=== PATIENT | female | born 1990 | race Caucasian/White ===

== ENCOUNTER 2020-07-20 20:05 | Emergency (ER) | payer BC ==
[2020-07-20 22:20] VITALS: RESP 18
--- NOTE | 2020-07-20 22:21 | ED ---
Medical Decision Making - Medical Decision Making Medical screening exam: 29-year-old female with no CVA past medical history presents to the [facility] department for upper quadrant pain since 6 AM this morning. Patient states she has pain in her right lower quadrant. Patient has a history of abdominal surgery. Patient denies any nausea. She does feel constitutional symptoms. No diarrhea. She does have right lower quadrant abdominal tenderness in the right lower quadrant. She is urged by her significant other to come to the emergency department to be evaluated for acute appendicitis. Labs and CT ordered. Disposition Referrals: Gilmer Pereira MD [Primary Care Provider] - 1-2 days
[2020-07-20 22:59] LABS: Basophils # (A) 0.1 k/uL (0-0.2); Basophils % (A) 0 %; Eosinophils # (A) 0.3 k/uL (0-0.7); Eosinophils % (A) 2 %; HCT 41.4 % (34.0-46.0); HGB 14.2 gm/dL (11.4-16.0); Lymphocytes # (A) 3.5 k/uL (1.0-4.8); Lymphocytes % (A) 24 %; MCH 29.9 pg (25.0-35.0); MCHC 34.2 g/dL (31.0-37.0); MCV 87.3 fL (80.0-100.0); Mean Platelet Volume 7.1; Monocytes # (A) 0.9 k/uL (0-1.0); Monocytes % (A) 6 %; Neutrophils % (A) 67 %; Platelet Count 271 k/uL (150-450); RBC 4.74 m/uL (3.80-5.40); RDW 13.1 % (11.5-15.5); WBC 14.8 k/uL (3.8-10.6)
[2020-07-20 23:13] LABS: African American GFR (CKD) >90 (>60 ml/min/1.73 sqM); Anion Gap 10 mmol/L; Blood Urea Nitrogen 20 mg/dL (7-17); Calcium 9.6 mg/dL (8.4-10.2); Carbon Dioxide 26 mmol/L (22-30); Chloride 103 mmol/L (98-107); Glucose 93 mg/dL (74-99); Non-African American GFR(CKD) >90 (>60 ml/min/1.73 sqM); Potassium 4.2 mmol/L (3.5-5.1); Sodium 139 mmol/L (137-145)
--- NOTE | 2020-07-20 23:30 | CT ---
EXAMINATION TYPE: CT abdomen pelvis w con DATE OF EXAM: 07/20/2020 COMPARISON: None HISTORY: RLQ pain CT DLP: 2210.8 mGycm Automated exposure control for dose reduction was used. CONTRAST: Performed with IV Contrast, patient injected with 100 mL of Isovue 300. Images obtained from the diaphragm to the floor the pelvis with IV contrast. Lung bases are clear. There is no pleural effusion. Heart size is normal. There is no pericardial eff usion. Liver spleen stomach pancreas gallbladder appear normal. The bile ducts are not dilated. There is no adrenal mass. Kidneys show satisfactory contrast opacification. There is no hydronephrosi s. Ureters are not dilated. Delayed images show normal renal excretion. Appendix is posterior and farhad ears normal. There is no retroperitoneal adenopathy. Bladder distends smoothly. There is no inguinal hernia. There is no free fluid in the pelvis. Uterus is anteverted. There is no pelvic mass. Lumbar vertebra have normal spacing and alignment. Posterior elements are intact. There is no cookie yoanna fracture. The bony pelvis is intact. Hip joints are intact. There is 12 mm right inguinal lymph node. There is no mesenteric edema. There is no ascites or free air. There is no bowel obstruction. There i s no intestinal wall thickening. IMPRESSION: Normal CT scan abdomen and pelvis.
[2020-07-20] MEDS ORDERED: SODIUM CHLORIDE 0.9% 1,000 ML IV STA (23:32)
[2020-07-20] MEDS ORDERED: KETOROLAC 15 MG/ML 1 ML VIAL IVP STA (23:32)
[2020-07-20 23:36] LABS: Appearance,Urine Clear (Clear); Bilirubin,Urine Negative (Negative); Blood,Urine Negative (Negative); Color,Urine Light Yellow; Glucose,Urine (UA) Negative (Negative); Ketones,Urine Negative (Negative); Leukocyte Esterase,Urine Negative (Negative); Nitrite,Urine Negative (Negative); PH, Urine 6.5 (5.0-8.0); Protein,Urine Negative (Negative); Specific Gravity,Urine 1.024 (1.001-1.035); Urobilinogen,Urine <2.0 mg/dL (<2.0)
[2020-07-21 00:24] LABS: Albumin 4.4 g/dL (3.5-5.0); Total Protein 7.2 g/dL (6.3-8.2)
[2020-07-21 00:25] LABS: Bilirubin, Delta 0.1 mg/dL (0.0-0.2); Bilirubin,Unconjugated 0.2 mg/dL (0.0-1.1); Total Bilirubin 0.3 mg/dL (0.2-1.3)
--- NOTE | 2020-07-21 00:28 | US ---
EXAMINATION TYPE: US abdomen limited DATE OF EXAM: 07/21/2020 COMPARISON: CT CLINICAL HISTORY: ruq. RUQ pain x 6.5 hours. EXAM MEASUREMENTS: Liver Length: 18.2 cm Gallbladder Wall: 0.21 cm CBD: Limited visibility, measured at 0.54 cm Right Kidney: 12.4 x 5.6 x 4.9 cm Limited due to overlying gas and patient body habitus. Pancreas: Not well seen. Liver: Appears enlarged and to have an increased echogenicity. Increased attenuation. Gallbladder: Limited. Internal echoes seen versus artifact. Evidence for sonographic Auguste's sign: No CBD: Limited, portions seen appear wnl. Right Kidney: Measures upper limits of normal versus slightly enlarged. Renal pelvis appears slightl y dilated with anechoic appearance medially. IMPRESSION: No gallstones or dilated ducts. There is probably some fatty infiltration of the liver. Partly contra cted gallbladder.
--- NOTE | 2020-07-21 01:10 | ED ---
General Adult HPI - General Chief complaint: Abdominal Pain Stated complaint: ABD pain Source: patient, RN notes reviewed Mode of arrival: ambulatory Limitations: no limitations - History of Present Illness Initial comments: 29-year-old female with a past medical history of seizure disorder presents to the emergency room for chief complaint of abdominal pain. Patient states that this started around 6 AM. States it is mostly in the right upper quadrant. It does radiate to the right lower quadrant. Patient is concerned she could have appendicitis. Patient denies nausea or vomiting. Denies diarrhea. Denies fevers or chills.Patient has no other complaints at this time including shortness of breath, chest pain, nausea or vomiting, headache, or visual changes. - Related Data Home Medications Medication Instructions Recorded Confirmed ARIPiprazole [Abilify] 5 mg PO HS 07/20/20 07/20/20 Ibuprofen [Motrin] 800 mg PO TID PRN 07/20/20 07/20/20 Venlafaxine HCl ER [Effexor Xr] 150 mg PO HS 07/20/20 07/20/20 metFORMIN HCL [Glucophage] 500 mg PO BID 07/20/20 07/20/20 Previous Rx's Medication Instructions Recorded Famotidine [Pepcid] 20 mg PO BID #30 tablet 07/21/20 Allergies Allergy/AdvReac Type Severity Reaction Status Date / Time shellfish derived [Shellfish] AdvReac Diarrhea Verified 07/20/20 23:31 Review of Systems ROS Statement: Those systems with pertinent positive or pertinent negative responses have been documented in the HPI. ROS Other: All systems not noted in ROS Statement are negative. Past Medical History Past Medical History: Seizure Disorder History of Any Multi-Drug Resistant Organisms: None Reported Past Surgical History: Tonsillectomy Additional Past Surgical History / Comment(s): wisdom teeth Past Psychological History: Anxiety, Depression Smoking Status: Former smoker Past Alcohol Use History: Occasional Past Drug Use History: None Reported General Exam Limitations: no limitations General appearance: alert, in no apparent distress Head exam: Present: atraumatic, normocephalic, normal inspection Eye exam: Present: normal appearance, PERRL, EOMI. Absent: scleral icterus, conjunctival injection, periorbital swelling ENT exam: Present: normal exam, mucous membranes moist Neck exam: Present: normal inspection, full ROM. Absent: tenderness, meningismus, lymphadenopathy Respiratory exam: Present: normal lung sounds bilaterally. Absent: respiratory distress, wheezes, rales, rhonchi, stridor Cardiovascular Exam: Present: regular rate, normal rhythm, normal heart sounds. Absent: systolic murmur, diastolic murmur, rubs, gallop, clicks GI/Abdominal exam: Present: soft, tenderness (Minimal right upper quadrant tenderness, negative Auguste sign. No significant lower abdominal tenderness including right lower quadrant abdominal tenderness), normal bowel sounds. Absent: distended, guarding, rebound, rigid Course Vital Signs 07/20/20 07/21/20 22:15 00:30 Temperature 98.3 F 98.0 F Pulse Rate 101 H 92 Respiratory 18 18 Rate Blood Pressure 118/80 113/71 O2 Sat by Pulse 99 100 Oximetry Medical Decision Making - Medical Decision Making Vitals are stable. Patient is well-appearing. HPI and physical exam as documented. Shows mild cytosis, likely reactive. CMP is unremarkable. Urinalysis is negative. Advanced triage provider did order a CAT scan patient which showed no acute process. Abdominal ultrasound was also ordered by myself which showed no gallstones or dilated ducts. Patient refused pain medication stating her pain is almost gone, a 2 out of 10. At this time given pain is upper abdomen and everything that we have done here is negative, we will start patient on Pepcid as she could have gastritis. Recommend she follow up with primary care. She'll return here for any worsening symptoms. - Lab Data Result diagrams: 07/20/20 22:16 07/20/20 22:16 Lab Results 07/20/20 07/20/20 07/20/20 Range/Units 22:16 22:16 22:16 WBC 14.8 H (3.8-10.6) k/uL RBC 4.74 (3.80-5.40) m/uL Hgb 14.2 (11.4-16.0) gm/dL Hct 41.4 (34.0-46.0) % MCV 87.3 (80.0-100.0) fL MCH 29.9 (25.0-35.0) pg MCHC 34.2 (31.0-37.0) g/dL RDW 13.1 (11.5-15.5) % Plt Count 271 (150-450) k/uL MPV 7.1 Neutrophils % 67 % Lymphocytes % 24 % Monocytes % 6 % Eosinophils % 2 % Basophils % 0 % Neutrophils # 10.0 H (1.3-7.7) k/uL Lymphocytes # 3.5 (1.0-4.8) k/uL Monocytes # 0.9 (0-1.0) k/uL Eosinophils # 0.3 (0-0.7) k/uL Basophils # 0.1 (0-0.2) k/uL Sodium (137-145) mmol/L Potassium (3.5-5.1) mmol/L Chloride (98-107) mmol/L Carbon Dioxide (22-30) mmol/L Anion Gap mmol/L BUN (7-17) mg/dL Creatinine (0.52-1.04) mg/dL Est GFR (CKD-EPI)AfAm (>60 ml/min/1.73 sqM) Est GFR (CKD-EPI)NonAf (>60 ml/min/1.73 sqM) Glucose (74-99) mg/dL Calcium (8.4-10.2) mg/dL Total Bilirubin (0.2-1.3) mg/dL Conjugated Bilirubin (0.0-0.3) mg/dL Unconjugated Bilirubin (0.0-1.1) mg/dL Delta Bilirubin (0.0-0.2) mg/dL AST (14-36) U/L ALT (4-34) U/L Alkaline Phosphatase (38-126) U/L Total Protein (6.3-8.2) g/dL Albumin (3.5-5.0) g/dL Lipase (23-300) U/L Urine Color Light Yellow Urine Appearance Clear (Clear) Urine pH 6.5 (5.0-8.0) Ur Specific [place] 1.024 (1.001-1.035) Urine Protein Negative (Negative) Urine Glucose (UA) Negative (Negative) Urine Ketones Negative (Negative) Urine Blood Negative (Negative) Urine Nitrite Negative (Negative) Urine Bilirubin Negative (Negative) Urine Urobilinogen <2.0 (<2.0) mg/dL Ur Leukocyte Esterase Negative (Negative) Urine HCG, Qual Not Detected (Not Detectd) 07/20/20 07/20/20 Range/Units 22:16 22:16 WBC (3.8-10.6) k/uL RBC (3.80-5.40) m/uL Hgb (11.4-16.0) gm/dL Hct (34.0-46.0) % MCV (80.0-100.0) fL MCH (25.0-35.0) pg MCHC (31.0-37.0) g/dL RDW (11.5-15.5) % Plt Count (150-450) k/uL MPV Neutrophils % % Lymphocytes % % Monocytes % % Eosinophils % % Basophils % % Neutrophils # (1.3-7.7) k/uL Lymphocytes # (1.0-4.8) k/uL Monocytes # (0-1.0) k/uL Eosinophils # (0-0.7) k/uL Basophils # (0-0.2) k/uL Sodium 139 (137-145) mmol/L Potassium 4.2 (3.5-5.1) mmol/L Chloride 103 (98-107) mmol/L Carbon Dioxide 26 (22-30) mmol/L Anion Gap 10 mmol/L BUN 20 H (7-17) mg/dL Creatinine 0.59 (0.52-1.04) mg/dL Est GFR (CKD-EPI)AfAm >90 (>60 ml/min/1.73 sqM) Est GFR (CKD-EPI)NonAf >90 (>60 ml/min/1.73 sqM) Glucose 93 (74-99) mg/dL Calcium 9.6 (8.4-10.2) mg/dL Total Bilirubin 0.3 (0.2-1.3) mg/dL Conjugated Bilirubin 0.0 (0.0-0.3) mg/dL Unconjugated Bilirubin 0.2 (0.0-1.1) mg/dL Delta Bilirubin 0.1 (0.0-0.2) mg/dL AST 21 (14-36) U/L ALT 19 (4-34) U/L Alkaline Phosphatase 105 (38-126) U/L Total Protein 7.2 (6.3-8.2) g/dL Albumin 4.4 (3.5-5.0) g/dL Lipase 71 (23-300) U/L Urine Color Urine Appearance (Clear) Urine pH (5.0-8.0) Ur Specific [place] (1.001-1.035) Urine Protein (Negative) Urine Glucose (UA) (Negative) Urine Ketones (Negative) Urine Blood (Negative) Urine Nitrite (Negative) Urine Bilirubin (Negative) Urine Urobilinogen (<2.0) mg/dL Ur Leukocyte Esterase (Negative) Urine HCG, Qual (Not Detectd) Disposition Clinical Impression: Abdominal pain Disposition: HOME SELF-CARE Condition: Good Instructions (If sedation given, give patient instructions): Abdominal Pain (ED) Additional Instructions: Take Pepcid as directed. Please follow up with primary care in 1-2 days. Return to the emergency room for any worsening symptoms. Prescriptions: Famotidine [Pepcid] 20 mg PO BID #30 tablet Is patient prescribed a controlled substance at d/c from ED?: No Referrals: Gilmer Pereira MD [Primary Care Provider] - 1-2 days Time of Disposition: 01:09
[2020-07-21 01:28] VITALS: BP 124/82; PULSE 95; TEMP 98.2
== END 2020-07-21 01:28 | disposition home or self-care (01) ==
LOC: EC 20:05
DX: R10.11 Right upper quadrant pain (principal); G40.909 Epilepsy, unspecified, not intractable, without status epilepticus; F41.9 Anxiety disorder, unspecified; F32.9 Major depressive disorder, single episode, unspecified; Z79.84 Long term (current) use of oral hypoglycemic drugs; Z79.899 Other long term (current) drug therapy; Z91.013 Allergy to seafood; Z87.891 Personal history of nicotine dependence
CPT/HCPCS: 36415; 80048; 80076; 83690; 85025; 81003; 81025; 74177; 99284; Q9967; 76705

== ENCOUNTER → 2020-09-02 | Outpatient (CLI) | payer BC ==
--- NOTE | 2020-09-02 16:52 | P.HPBAR ---
Bariatric H&P - History & Physicial H&P Date: 09/02/20 History & Physicial: Visit/CC: Patient initial contact: Initial weight: Initial weight in pounds: Height: 5 ft 5 in Initial BMI: Last weight: Current weight: 131.542 kg Current weight in pounds: Current BMI: [place] body weight (based on NIH guidelines): Excess body weight loss: The patient is a 29 year-old F who presents for Bariatric Assessment. DATE OF SERVICE: 09/02/2020 REASON FOR CONSULTATION: Initial bariatric evaluation. HISTORY OF PRESENT ILLNESS: Marissa Ruiz is a 29-year-old female who comes with lifelong morbid obesity. She is looking into the sleeve gastrectomy. She has tried Keto diet for weight loss. She has lost 40 pounds from prior attempts and has weight regain. Her father has troubles with weight and morbid obesity. She has occasional gastroesophageal reflux disease. She does not takes Pepcid as needed. She denies prior EGD. She still has her gallbladder. She has right upper quadrant pain that is now improved. She denies prior abdominal surgeries. She had wisdom tooth extraction and tonsils removed. She denies stomach or esophageal cancer. She denies easy bruising or bleeding. She denies inflammatory bowel disease in herself or family. She denies past deep venous thromboses. She has shellfish allergy. She reports osteoarthritis of the knees. She denies hip pain. She has left ankle pain with osteoarthritis. She has snoring and sleep apnea. She denies reports of blood pressure. She is on anti-anxiety medications and antidepressants. She reports occasional smoking. She presents in consultation for management of morbid obesity. At height of 5 feet 5 inches, her ideal body weight is 149 pounds. She comes in 289 pounds. Her body mass index is 48.3. She is 140 pounds overweight. PAST MEDICAL HISTORY: 1. Morbid obesity due to excess calories 2. Body mass index of 48.3, initial 3. Seizure disorder 4. Generalized anxiety disorder 5. Depressive disorder 6. Gastroesophageal reflux disease 7. Obstructive sleep apnea 8. Osteoarthritis of the bilateral knees 9. Left ankle osteoarthritis PAST SURGICAL HISTORY: 1. Tonsillectomy 2. [place] tooth extraction HOME MEDICATIONS: Home Medications Medication Instructions Recorded Confirmed Ibuprofen [Motrin] 800 mg PO TID PRN 07/20/20 11/04/20 Venlafaxine HCl ER [Effexor XR] 150 mg PO HS 07/20/20 11/04/20 ALLERGIES: Allergies Allergy/AdvReac Type Severity Reaction Status Date / Time shellfish derived [Shellfish] AdvReac Diarrhea Verified 11/04/20 14:25 SOCIAL HISTORY: Tobacco use. FAMILY HISTORY: No family history of ulcerative colitis disease or Crohn's disease. Family history of morbid obesity. No lupus in the family. No reports of stomach or esophageal cancer. Her father has troubles with weight and morbid obesity. REVIEW OF ORGAN SYSTEMS: CONSTITUTIONAL: At height of 5 feet 5 inches, her ideal body weight is 149 pounds. She comes in 289 pounds. Her body mass index is 48.3. She is 140 pounds overweight. HEENT: Denies any active troubles with vision or hearing. ENDOCRINE: Denies diabetes. No hypothyroidism. CARDIOVASCULAR: Denies past reports of palpitations or heart attacks or chest pain. RESPIRATORY: Denies chronic obstructive pulmonary disease. GASTROINTESTINAL: Denies any bright red blood per rectum. No diarrhea. No constipation. Has gastroesophageal reflux disease. GENITOURINARY: Denies bladder urgency. No recent blood in urine MUSCULOSKELETAL: Has lower back pain and joint pain. Has osteoarthritis of the knees. NEURO: No headaches. No seizure disorders. PSYCH: Has depression. No suicidal ideation. RHEUMATOLOGIC: No lupus. No rheumatoid arthritis. HEMATOLOGIC: Denies any abnormal bleeding or bruising. SKIN: No rash. No skin cancer. PHYSICAL EXAM: VITAL SIGNS: Height 5 foot 5 inches, weight 289 pounds. BMI 48.3 Vital Signs Temp 98.2 F 09/02/20 16:40 Pulse 109 H 09/02/20 16:40 Resp 18 09/02/20 16:40 BP 121/76 09/02/20 16:40 Pulse Ox GENERAL: Well-developed in no acute distress. HEENT: No scleral icterus. Extraocular movements grossly intact. Hears conversational speech. No nasal drainage. NECK: Supple without lymphadenopathy. CHEST: Nonlabored respirations with equal bilateral excursions. CARDIOVASCULAR: Tachycardic. Distal 2+ pulses. ABDOMEN: Obese, soft, nontender, nondistended. MUSCULOSKELETAL: No clubbing, cyanosis. Gross strength within normal limits. NEURO: No focal or lateralizing signs. Cranial nerves 2 through 12 grossly within normal limits. PSYCH: Appropriate affect. Alert and oriented to person, place and time. SKIN: Good skin turgor. Well perfused. ASSESSMENT: 1. Morbid obesity due to excess calories 2. Body mass index of 48.3, initial 3. Seizure disorder 4. Generalized anxiety disorder 5. Depressive disorder 6. Gastroesophageal reflux disease 7. Obstructive sleep apnea 8. Osteoarthritis of the bilateral knees 9. Left ankle osteoarthritis 10. Dietary surveillance and counseling 11. Tobacco abuse disorder PLAN: 1. Surgical options including a band, gastric bypass, sleeve gastrectomy were described in detail. Alternatives such as gastric balloon including duodenal switch were described. She is looking into the sleeve gastrectomy. 2. The [place] bariatric surgical collaborative data and outcomes calculator were described with surgical options. 3. Recommend a bariatric metabolic panel to evaluate for micro- including macronutrient deficiencies. 4. For history of daytime somnolence, recommend evaluation and treatment for sleep apnea. 5. Dietary surveillance and counseling was reviewed. Increased protein intake over 65 grams daily advised. 6. Will need cardiac risk assessment. 7. Recommend medical risk assessment. 8. Psych assessment per insurance guidelines. 9. Recommend upper endoscopy. 10. Recommend 12-lead EKG. 11. Recommend urine nicotine testing for history of tobacco abuse disorder 12. Recommend urine drug screen 13. Tobacco cessation and counseling over 3 minutes reviewed. Thank you for this consultation. Past Medical History Past Medical History: Seizure Disorder History of Any Multi-Drug Resistant Organisms: None Reported Past Surgical History: Tonsillectomy Additional Past Surgical History / Comment(s): wisdom teeth Past Psychological History: Anxiety, Depression Smoking Status: Former smoker Past Alcohol Use History: Occasional Past Drug Use History: None Reported Bariatric Checklist Checklist: Plan: Checklist: EGD: 1. Hiatal hernia: 2. H. Pylori: HgbA1c: Vitamin D: Smoking: Primary care physician referral: Psychiatry clearance: Cardiology clearance: Sleep study: Diet journal: VTE risk score: VTE risk level: Rehab needs at discharge:
[2020-09-02 16:59] VITALS: BP 121/76; PULSE 109; RESP 18; TEMP 98.2; BMI 48.2
== END | disposition home or self-care (01) ==
LOC: BARWHC3 15:13
PROVIDERS: ATTEND Surgery Plastic and Reconstructive Surgery
DX: E66.01 Morbid (severe) obesity due to excess calories (principal); G40.909 Epilepsy, unspecified, not intractable, without status epilepticus; F41.1 Generalized anxiety disorder; F32.9 Major depressive disorder, single episode, unspecified; K21.9 Gastro-esophageal reflux disease without esophagitis; G47.33 Obstructive sleep apnea (adult) (pediatric); M17.0 Bilateral primary osteoarthritis of knee; M19.072 Primary osteoarthritis, left ankle and foot; Z71.3 Dietary counseling and surveillance; Z72.0 Tobacco use; Z68.42 Body mass index [BMI] 45.0-49.9, adult; Z91.013 Allergy to seafood; Z79.1 Long term (current) use of non-steroidal anti-inflammatories (NSAID)
CPT/HCPCS: 99203

== ENCOUNTER 2020-10-19 08:28 | Day surgery (SDC) | payer BC ==
[2020-10-14 14:00] VITALS: BMI 48.2
--- NOTE | 2020-10-19 07:43 | P.GSHP ---
History of Present Illness H&P Date: 10/19/20 CHIEF COMPLAINT: GERD HISTORY OF PRESENT ILLNESS: The patient is a 29-year-old female who presents reports gastroesophageal reflux disease. Upper endoscopy was offered for further evaluation and management. PAST MEDICAL HISTORY: Please see list. PAST SURGICAL HISTORY: Please see list. MEDICATIONS: Please see list. ALLERGIES: Please see list. SOCIAL HISTORY: No illicit drug use FAMILY HISTORY: No reports of Crohn disease or ulcerative colitis. REVIEW OF ORGAN SYSTEMS: CONSTITUTIONAL: No reports of fevers or chills. GI: Denies any blood in stools or constipation. PHYSICAL EXAM: VITAL SIGNS: Stable GENERAL: Well-developed and pleasant in no acute distress. HEENT: No scleral icterus. Extraocular movements grossly intact. Moist buccal mucosa. NECK: Supple without lymphadenopathy. CHEST: Unlabored respirations. Equal bilateral excursions. CARDIOVASCULAR: Regular rate and rhythm. Distal 2+ pulses. ABDOMEN: Soft, nondistended. MUSCULOSKELETAL: No clubbing, cyanosis, or edema. ASSESSMENT: 1. Gastroesophageal reflux disease PLAN: 1. Recommend proceeding with an upper endoscopy Past Medical History Past Medical History: Seizure Disorder Additional Past Medical History / Comment(s): petit mal seizures-last seizure approx age 11 or 12 History of Any Multi-Drug Resistant Organisms: None Reported Past Surgical History: Tonsillectomy Additional Past Surgical History / Comment(s): wisdom teeth Past Anesthesia/Blood Transfusion Reactions: No Reported Reaction Smoking Status: Former smoker - Past Family History Mother Family Medical History: Cancer Additional Family Medical History / Comment(s): bladder CA. maternal grandmother lung CA Medications and Allergies Home Medications Medication Instructions Recorded Confirmed Type Ibuprofen [Motrin] 800 mg PO TID PRN 07/20/20 10/14/20 History Venlafaxine HCl ER [Effexor Xr] 150 mg PO HS 07/20/20 10/14/20 History Allergies Allergy/AdvReac Type Severity Reaction Status Date / Time shellfish derived [Shellfish] AdvReac Diarrhea Verified 10/14/20 13:52
[~2020-10-19 08:28] MED LIST: LACTATED RINGERS 1,000 ML IV SCH
[2020-10-19 08:47] VITALS: TEMP 97.8
[2020-10-19] MEDS ORDERED: LIDOCAINE 1% (10MG/ML) FOR IV START INTRADERMA ONE (08:52)
[2020-10-19] MEDS ORDERED: KETAMINE 10 MG/ML 20 ML VIAL ONE (09:30)
[2020-10-19] MEDS ORDERED: LIDOCAINE 1% INJ 10MG/ML (20 ML MDV) ONE (09:30)
[2020-10-19] MEDS ORDERED: GLYCOPYRROLATE 0.2 MG/ML 2 ML VIAL ONE (09:30)
[2020-10-19] MEDS ORDERED: PROPOFOL 10 MG/ML 20 ML VIAL IV ONE (09:30)
--- NOTE | 2020-10-19 09:49 | P.PCN ---
Date of Procedure: 10/19/20 Description of Procedure: PREOPERATIVE DIAGNOSIS: Gastroesophageal reflux disease. Morbid obesity. POSTOPERATIVE DIAGNOSIS: Morbid obesity. Gastritis. Gastroesophageal reflux disease. OPERATION: Esophagogastroduodenoscopy with biopsies along antrum. SURGEON: Angelique Will MD ANESTHESIA: MAC. INDICATIONS: The patient is a 29-year-old female who presents with a history of reflux disease. Benefits and risks of the procedure were described. Informed consent was obtained. DESCRIPTION: The patient was brought into the endoscopy suite and laid in the left lateral decubitus position. An Olympus gastroscope was passed along the posterior oropharynx down to the distal esophagus where the squamocolumnar junction was encountered at 37 cm from the incisors. The stomach was entered and no bile reflux was found. Additional findings are listed below. Biopsies with cold forceps were obtained of the antrum. The first through third portion of the duodenum was examined and unremarkable. Retroflexion of the scope confirmed Hill grade 3 lower esophageal valve. The squamocolumnar junction demonstrated LA grade B erosive esophagitis. The stomach was desufflated. The patient tolerated the procedure well. FINDINGS: Squamocolumnar junction 37 cm from the incisors. Diaphragmatic hiatus at 37 cm. Hill grade 3 lower esophageal valve. LA grade B erosive esophagitis. No active duodenitis. Chronic gastritis RECOMMENDATIONS: Upper endoscopy as needed. Plan - Discharge Summary Discharge Rx Participant: No New Discharge Prescriptions: Continue Venlafaxine HCl ER [Effexor XR] 150 mg PO HS Ibuprofen [Motrin] 800 mg PO TID PRN PRN Reason: Pain Discharge Medication List Ibuprofen [Motrin] 800 mg PO TID PRN 07/20/20 [History] Venlafaxine HCl ER [Effexor XR] 150 mg PO HS 07/20/20 [History] Follow up Appointment(s)/Referral(s): Angelique Will MD [STAFF PHYSICIAN] - 11/04/20 Patient Instructions/Handouts: Gastritis (DC) Discharge Disposition: HOME SELF-CARE
[2020-10-19 10:23] VITALS: BP 121/81; PULSE 74; RESP 17
== END 2020-10-19 10:26 | disposition home or self-care (01) ==
LOC: ORWHC2ENDO 08:28
PROVIDERS: ATTEND Surgery Plastic and Reconstructive Surgery
DX: K21.9 Gastro-esophageal reflux disease without esophagitis (principal); K29.50 Unspecified chronic gastritis without bleeding; E66.01 Morbid (severe) obesity due to excess calories; G40.909 Epilepsy, unspecified, not intractable, without status epilepticus; Z79.899 Other long term (current) drug therapy; Z91.013 Allergy to seafood; F32.9 Major depressive disorder, single episode, unspecified
CPT/HCPCS: 81025; 88305; 43239; J2001; J2704

== ENCOUNTER → 2021-01-27 | Outpatient (CLI) | payer BC ==
[2021-01-27 16:34] LABS: Partial Thromboplastin Time 23.4 sec (22.0-30.0); Prothrombin Time 10.4 sec (9.0-12.0)
[2021-01-27 23:18] LABS: HGB 13.8 g/dL (12.0-15.0); MCH 29.1 pg (27.0-32.0); MCHC 32.9 g/dL (32.0-37.0); MCV 88.6 fL (80.0-97.0); Mean Platelet Volume 10.3 fL (9.5-12.2); Platelet Count 287 X 10*3/uL (140-440); RBC 4.74 X 10*6/uL (4.10-5.20); RDW 13.2 % (11.5-14.5); WBC 13.25 X 10*3/uL (4.50-10.00)
[2021-01-28 09:21] LABS: % Iron Saturation 18.82 (12.00-45.00); African American GFR (CKD) 138.6 (60.0-200.0); Albumin 4.8 g/dL (3.8-4.9); Albumin/Globulin Ratio 1.88 (1.60-3.17); Anion Gap 20.7 mmol/L (4.00-12.00); BUN/Creat Ratio 20.12 Ratio (12.00-20.00); Blood Urea Nitrogen 13.2 mg/dL (9.0-27.0); Calcium 9.4 mg/dL (8.7-10.3); Carbon Dioxide 16.1 mmol/L (21.6-31.8); Globulin 2.5 g/dL (1.6-3.3); Magnesium 2.1 mg/dL (1.5-2.4); Non-African American GFR(CKD) 119.6 (60.0-200.0); Phosphorus 4.2 mg/dL (2.4-5.1); Potassium 3.8 mmol/L (3.5-5.5); Prealbumin 22.6 mg/dL (18.0-42.0); Total Bilirubin 0.3 mg/dL (0.30-1.20); Total Protein 7.3 g/dL (6.2-8.2)
[2021-01-28 09:25] LABS: Folate, Serum 12.9 ng/mL (4.40-31.00)
[2021-01-28 13:53] LABS: Zinc, Serum 78 ug/dL (60-130)
[2021-01-29 06:10] LABS: Vitamin A 37 ug/dL (38-106)
[2021-01-29 06:33] LABS: Vit B1(Thiamine) 88 ug/L (38-122)
== END | disposition home or self-care (01) ==
LOC: LABWHC1 15:01
PROVIDERS: ATTEND Surgery Plastic and Reconstructive Surgery
DX: E66.01 Morbid (severe) obesity due to excess calories (principal); D50.8 Other iron deficiency anemias; K90.89 Other intestinal malabsorption; E89.1 Postprocedural hypoinsulinemia; E55.9 Vitamin D deficiency, unspecified; K74.1 Hepatic sclerosis; N19 Unspecified kidney failure; K50.90 Crohn's disease, unspecified, without complications
CPT/HCPCS: 84255; 84134; 84425; 80061; 80053; 82607; 82728; 82525; 82746; 83540; 83550; 83735; 84100; 84443; 84590; 84630; 85027; 85610; 85730; 82306; 80323; 83970; 83036; 80307; 93005; 36415; G0482

== ENCOUNTER → 2021-03-01 | Outpatient (CLI) | payer BC ==
[2021-03-01 13:01] VITALS: BMI 46.2
== END ==
LOC: BARWHC3 08:35
PROVIDERS: ATTEND Surgery Plastic and Reconstructive Surgery
DX: E66.01 Morbid (severe) obesity due to excess calories (principal); Z71.3 Dietary counseling and surveillance
CPT/HCPCS: 97804

== ENCOUNTER → 2021-03-03 | Outpatient (CLI) | payer BC | END | disposition home or self-care (01) | LOC: LABWHC1 11:09 | PROVIDERS: ATTEND Surgery Plastic and Reconstructive Surgery | DX: Z71.51 Drug abuse counseling and surveillance of drug abuser (principal) | CPT/HCPCS: 80323; 80307; G0482 ==

== ENCOUNTER → 2021-03-31 | Outpatient (CLI) | payer BC ==
[2021-04-01 00:01] LABS: Basophils # (A) 0.03 X 10*3/uL (0.00-0.10); Basophils % (A) 0.3 %; Eosinophils # (A) 0.13 X 10*3/uL (0.04-0.35); Eosinophils % (A) 1.2 %; HCT 41.6 % (37.2-46.3); HGB 13.4 g/dL (12.0-15.0); Lymphocytes # (A) 2.55 X 10*3/uL (0.90-5.00); MCH 28.1 pg (27.0-32.0); MCHC 32.2 g/dL (32.0-37.0); MCV 87.2 fL (80.0-97.0); Mean Platelet Volume 10.3 fL (9.5-12.2); Monocytes # (A) 0.72 X 10*3/uL (0.20-1.00); Monocytes % (A) 6.8 %; Neutrophils # (A) 7.17 X 10*3/uL (1.80-7.70); Neutrophils % (A) 67.3 %; Platelet Count 271 X 10*3/uL (140-440); RBC 4.77 X 10*6/uL (4.10-5.20); WBC 10.64 X 10*3/uL (4.50-10.00)
[2021-04-01 03:11] LABS: African American GFR (CKD) 142.8 (60.0-200.0); Albumin 4.4 g/dL (3.8-4.9); Anion Gap 14.6 mmol/L (10.00-18.00); Blood Urea Nitrogen 16.2 mg/dL (9.0-27.0); Calcium 9.2 mg/dL (8.7-10.3); Carbon Dioxide 21.4 mmol/L (20.0-27.5); Globulin 2.2 g/dL (1.6-3.3); Non-African American GFR(CKD) 123.2 (60.0-200.0); Potassium 3.7 mmol/L (3.5-5.5); Total Bilirubin 0.3 mg/dL (0.30-1.20); Total Protein 6.6 g/dL (6.2-8.2)
== END | disposition home or self-care (01) ==
LOC: EEVIPCON 16:03 → LABWHC1 16:03
PROVIDERS: ATTEND Surgery Plastic and Reconstructive Surgery
DX: Z01.812 Encounter for preprocedural laboratory examination (principal)
CPT/HCPCS: 36415; 80053; 85025

== ENCOUNTER → 2021-03-31 | Outpatient (CLI) | payer BC ==
[2021-03-31 15:34] VITALS: BP 154/51; PULSE 83; RESP 18; TEMP 98.7; BMI 45.9
--- NOTE | 2021-03-31 15:44 | P.BASOAP ---
Subjective Progress Note Date: 03/31/21 She has elevated WBC count. She is looking into sleeve. Need hematology direction for persistent leukocytosis. Consent reviewed. Objective - Vital Signs Vital signs: Vital Signs Temp 98.7 F 03/31/21 15:32 Pulse 83 03/31/21 15:32 Resp 18 03/31/21 15:32 BP 154/51 03/31/21 15:32 Pulse Ox Intake & Output 03/30/21 03/31/21 03/31/21 18:59 06:59 18:59 Weight 125.191 kg Assessment/Plan Plan: Date: 03/31/21 Initial Weight: 131.542 kg Initial BMI: 48.2 Current Weight: 125.191 kg Current BMI: 45.9 Type of Surgery: Total Volume in Band: Previous Volume: Volume Removed: Volume Added: Band Size:
== END | disposition home or self-care (01) ==
LOC: BARWHC3 15:06
PROVIDERS: ATTEND Surgery Plastic and Reconstructive Surgery
DX: E66.01 Morbid (severe) obesity due to excess calories (principal); Z68.42 Body mass index [BMI] 45.0-49.9, adult; Z71.3 Dietary counseling and surveillance
CPT/HCPCS: 99211

== ENCOUNTER 2021-04-05 11:56 | Inpatient (IN) | payer BC ==
--- NOTE | 2021-04-05 08:17 | P.GSHP ---
History of Present Illness H&P Date: 04/05/21 CHIEF COMPLAINT: Morbid obesity HISTORY OF PRESENT ILLNESS: Marissa Ruiz is a 30-year-old female who comes with lifelong morbid obesity. She is looking into the sleeve gastrectomy. As a result of her obesity, she had developed osteoarthritis of the knees, left ankle pain with osteoarthritis, and sleep apnea. She has completed upper endoscopy. No reports of abdominal pain. At height of 5 feet 5 inches, her ideal body weight is 149 pounds. She comes in 284 pounds from 289 pounds, 2 months ago. She has lost 5 pounds in 2 months. Her body mass index is 48.3, now 47.4. She is 135 pounds overweight. PAST MEDICAL HISTORY: 1. Morbid obesity due to excess calories 2. Body mass index of 48.3, initial 3. Seizure disorder 4. Generalized anxiety disorder 5. Depressive disorder 6. Gastroesophageal reflux disease 7. Obstructive sleep apnea 8. Osteoarthritis of the bilateral knees 9. Left ankle osteoarthritis PAST SURGICAL HISTORY: 1. Tonsillectomy 2. [place] tooth extraction HOME MEDICATIONS: Home Medications Medication Instructions Recorded Confirmed Ibuprofen [Motrin] 800 mg PO TID PRN 07/20/20 11/04/20 Venlafaxine HCl ER [Effexor XR] 150 mg PO HS 07/20/20 11/04/20 ALLERGIES: Allergies Allergy/AdvReac Type Severity Reaction Status Date / Time shellfish derived [Shellfish] AdvReac Diarrhea Verified 11/04/20 14:25 SOCIAL HISTORY: Tobacco use. FAMILY HISTORY: No family history of ulcerative colitis disease or Crohn's disease. Family history of morbid obesity. No lupus in the family. No reports of stomach or esophageal cancer. Her father has troubles with weight and morbid obesity. REVIEW OF ORGAN SYSTEMS: CONSTITUTIONAL: At height of 5 feet 5 inches, her ideal body weight is 149 pounds. Her body mass index is 48.3. She is 140 pounds overweight. HEENT: Denies any active troubles with vision or hearing. ENDOCRINE: Denies diabetes. No hypothyroidism. CARDIOVASCULAR: Denies past reports of palpitations or heart attacks or chest pain. RESPIRATORY: Denies chronic obstructive pulmonary disease. GASTROINTESTINAL: Denies any bright red blood per rectum. No diarrhea. No constipation. Has gastroesophageal reflux disease. GENITOURINARY: Denies bladder urgency. No recent blood in urine MUSCULOSKELETAL: Has lower back pain and joint pain. Has osteoarthritis of the knees. NEURO: No headaches. No seizure disorders. PSYCH: Has depression. No suicidal ideation. RHEUMATOLOGIC: No lupus. No rheumatoid arthritis. HEMATOLOGIC: Denies any abnormal bleeding or bruising. SKIN: No rash. No skin cancer. PHYSICAL EXAM: VITAL SIGNS: Height 5 foot 5 inches, weight 284 pounds. BMI 47.4 GENERAL: Well-developed in no acute distress. HEENT: No scleral icterus. Extraocular movements grossly intact. Hears conversational speech. No nasal drainage. NECK: Supple without lymphadenopathy. CHEST: Nonlabored respirations with equal bilateral excursions. CARDIOVASCULAR: Distal 2+ pulses. Regular rate and rhythm. ABDOMEN: Obese, soft, nontender, nondistended. MUSCULOSKELETAL: No clubbing, cyanosis. Gross strength within normal limits. NEURO: No focal or lateralizing signs. Cranial nerves 2 through 12 grossly within normal limits. PSYCH: Appropriate affect. Alert and oriented to person, place and time. SKIN: Good skin turgor. Well perfused. ASSESSMENT: 1. Morbid obesity due to excess calories 2. Body mass index of 48.3, initial 3. Seizure disorder 4. Generalized anxiety disorder 5. Depressive disorder 6. Gastroesophageal reflux disease 7. Obstructive sleep apnea 8. Osteoarthritis of the bilateral knees 9. Left ankle osteoarthritis 10. Dietary surveillance and counseling 11. Tobacco abuse disorder PLAN: 1. Bariatric options between a sleeve, band and a Kelly-en-Y gastric bypass were reviewed in detail. The patient elected for a sleeve gastrectomy. Robotic assisted approach described. 2. The [place] [facility] Data was also reviewed with benefits and risks as described. 3. An 8 page second-generation bariatric consent form was reviewed in detail including potential of bleeding, infection, leaks, adequate weight loss, nutritional deficiencies which the patient demonstrated understanding of the risks. 4. A 2 week high-protein low caloric 800 kcal diet described to address hepatomegaly. 5. Preoperative labs including complete metabolic panel and CBC with type and screen recommended. 6. DVT prophylaxis per [place] [facility]. 7. Antibiotic prophylaxis. 8. Inpatient hospitalization anticipated for more than 2 nights. 9. All questions and concerns were addressed with the patient. 10. She is at elevated risk with pre-existing history of tobacco abuse disorder 11. Overall, patient has expressed understanding of bariatric care including postoperative diet and commitment of lifestyle. Patient should benefit from surgical intervention for correction of her morbid obesity. Past Medical History Past Medical History: Seizure Disorder Additional Past Medical History / Comment(s): petit mal seizures-last seizure approx age 11 or 12 History of Any Multi-Drug Resistant Organisms: None Reported Past Surgical History: Tonsillectomy Additional Past Surgical History / Comment(s): wisdom teeth Past Anesthesia/Blood Transfusion Reactions: No Reported Reaction Smoking Status: Former smoker - Past Family History Mother Family Medical History: Cancer Additional Family Medical History / Comment(s): bladder CA. maternal grandmother lung CA Medications and Allergies Home Medications Medication Instructions Recorded Confirmed Type Ibuprofen [Motrin] 800 mg PO TID PRN 07/20/20 04/01/21 History FLUoxetine HCL [PROzac] 40 mg PO DAILY 03/08/21 04/01/21 History Allergies Allergy/AdvReac Type Severity Reaction Status Date / Time shellfish derived [Shellfish] AdvReac Diarrhea Verified 04/01/21 08:59
[~2021-04-05 11:56] MED LIST changes: +ACETAMINOPHEN TAB 500 MG TAB PO STA; +CHLORHEXIDINE GLUCONATE 15 ML CUP MUCOUS MEM PRN; +DEXAMETHASONE SOD PHOSPHATE 4 MG/ML 1 ML VIAL IV ONE; +ENOXAPARIN 40 MG/0.4 ML SYRINGE SQ PRN; +GABAPENTIN 300 MG CAP PO STA; +HYDROmorphone 0.5 MG/0.5 ML SYRINGE IVP PRN; -LACTATED RINGERS 1,000 ML IV SCH; +LIDOCAINE 1% (10MG/ML) FOR IV START INTRADERMA PRN; +MELOXICAM 7.5 MG TAB PO SCH; +MIDAZOLAM 2 MG/2 ML VIAL IV PRN; +ONDANSETRON 4 MG/2 ML VIAL IVP ONE; +PANTOPRAZOLE 40 MG/10 ML VIAL IVP PRN; +SCOPOLAMINE 1.5MG/72HR PATCH TRANSDERM STA; +ceFAZolin 3 GM in SODIUM CHLORIDE 0.9% 100 ML IVPB PRN
[2021-04-05 13:40] LABS: Basophils % (A) 0 %; Eosinophils # (A) 0.1 k/uL (0-0.7); Eosinophils % (A) 1 %; HCT 42.3 % (34.0-46.0); HGB 14.2 gm/dL (11.4-16.0); Lymphocytes % (A) 17 %; MCH 29.5 pg (25.0-35.0); MCHC 33.5 g/dL (31.0-37.0); MCV 88.3 fL (80.0-100.0); Mean Platelet Volume 7.8; Monocytes # (A) 0.5 k/uL (0-1.0); Monocytes % (A) 4 %; Neutrophils # (A) 8.7 k/uL (1.3-7.7); Neutrophils % (A) 76 %; Platelet Count 244 k/uL (150-450); RBC 4.79 m/uL (3.80-5.40); RDW 13.4 % (11.5-15.5); WBC 11.5 k/uL (3.8-10.6)
[2021-04-05] MEDS: LACTATED RINGERS 1,000 ML IV SCH (13:42)
[2021-04-05] MEDS ORDERED: NEOSTIGMINE 1 MG/ML 10 ML VIAL ONE (14:31)
[2021-04-05] MEDS ORDERED: SUGAMMADEX SODIUM 500 MG/5 ML SDV IV ONE (14:31)
[2021-04-05] MEDS ORDERED: MIDAZOLAM 2 MG/2 ML VIAL ONE (14:31)
[2021-04-05] MEDS ORDERED: SUCCINYLCHOLINE CHLORIDE VIAL 200 MG/10 ML VIAL IV ONE (14:31)
[2021-04-05] MEDS ORDERED: .fentaNYL (PF) 50 MCG/ML 2 ML AMP ONE (14:31)
[2021-04-05] MEDS ORDERED: GLYCOPYRROLATE 0.2 MG/ML 2 ML VIAL ONE (14:31)
[2021-04-05] MEDS ORDERED: PROPOFOL 10 MG/ML 20 ML VIAL IV ONE (14:31)
[2021-04-05] MEDS ORDERED: LIDOCAINE 1% INJ 10MG/ML (20 ML MDV) ONE (14:31)
[2021-04-05] MEDS ORDERED: ROCURONIUM 10 MG/ML (5 ML VIAL) IV ONE (14:31)
[2021-04-05] MEDS ORDERED: HYDROmorphone (PF) 1 MG/ML ONE (14:31)
[2021-04-05] MEDS ORDERED: BUPIVACAIN-EPI 0.25%-1:200,000 30 ML VIAL SQ ONE ×2 (14:54→15:01)
[2021-04-05] MEDS ORDERED: LACTATED RINGERS 1,000 ML IV ONE (16:18)
[2021-04-05] MEDS ORDERED: DEXAMETHASONE SOD PHOSPHATE 10 MG/ML 1 ML VIAL IVP PRN (16:26)
[2021-04-05] MEDS ORDERED: SODIUM CHLORIDE 0.9% 2,000 ML IV ONE (16:26)
[2021-04-05] MEDS ORDERED: HYDROmorphone 1 MG/ML 1 ML SYRINGE IVP PRN (16:27)
[2021-04-05] MEDS ORDERED: NALOXONE 0.4 MG/ML 1 ML VIAL IV PRN (16:27)
--- NOTE | 2021-04-05 16:33 | P.OP ---
Date of Procedure: 04/05/21 Description of Procedure: SURGEON: DANIELE GOODEN MD PREOPERATIVE DIAGNOSES: 1. Morbid obesity due to excess calories 2. Body mass index of 48.3, initial 3. Seizure disorder 4. Generalized anxiety disorder 5. Depressive disorder 6. Gastroesophageal reflux disease 7. Obstructive sleep apnea 8. Osteoarthritis of the bilateral knees 9. Left ankle osteoarthritis 10. Dietary surveillance and counseling 11. Tobacco abuse disorder POSTOPERATIVE DIAGNOSES: 1. Morbid obesity due to excess calories 2. Body mass index of 48.3, initial 3. Seizure disorder 4. Generalized anxiety disorder 5. Depressive disorder 6. Gastroesophageal reflux disease 7. Obstructive sleep apnea 8. Osteoarthritis of the bilateral knees 9. Left ankle osteoarthritis 10. Dietary surveillance and counseling 11. Tobacco abuse disorder OPERATION: 1. Robotic assisted daVinci Xi laparoscopic sleeve gastrectomy with 40-Saudi Arabian bougie, multiport. 2. Intraoperative esophagogastroduodenoscopy. ANESTHESIA: Gen. local anesthetic ESTIMATED BLOOD LOSS: 5 mL SPECIMENS REMOVED: Sleeve gastrectomy COMPLICATIONS: None. FINDINGS: 1. Negative intraoperative esophagogastrojejunoscopy leak test. 2. No large hiatus hernia. 3. Total of 6 staplers used including 3 - 60 mm green robot and 4 - 60 mm blue aisha used to create the gastric sleeve. 4. Sleeve gastrectomy 26 x 4.5 cm INDICATIONS: Marissa Ruiz is a 30-year-old female who comes with lifelong morbid obesity. She is looking into the sleeve gastrectomy. As a result of her obesity, she had developed osteoarthritis of the knees, left ankle pain with osteoarthritis, and sleep apnea. At height of 5 feet 5 inches, her ideal body weight is 149 pounds. She comes in 263 pounds. Her body mass index was 48.3. She is 135 pounds overweight. All surgical options for morbid obesity had been described using the [place] [facility]ariat[facility] collaborative comorbidity resolution including complication risk score. A second-generation bariatric consent form was described in detail including the possibility of protein malnutrition, leaks, gastric stricture, venous thrombosis, gastroesophageal reflux disease, need for further surgery for which he demonstrated understanding. Benefits and risks of the procedure were described at length. Informed consent was obtained. DESCRIPTION: The patient was brought into the operating room theater. Preoperatively he had received Lovenox subcutaneously for DVT prophylaxis. Additionally he had Peridex oral solution as an oral decontaminant. After general induction, the abdomen was prepped and draped in standard sterile fashion. An Ioban draping was placed along the abdomen. No harry catheter was placed. A robotic da Moises Xi system was prepped and primed. At 15 cm from the xiphoid, proposed port sites were marked with indelible marker along the anterior axillary line bilaterally, mid axillary line bilaterally with each ports were marked 10 to 15 cm from each other. The seed laboratory assistant port was marked along the left lateral abdominal wall. The robotic stapler port was marked for the right midclavicular line. A 5 mm 0 degrees laparoscopic trocar entry was performed along the left upper quadrant. The abdomen was insufflated to 15 mmHg pressure he tolerated well. Diagnostic laparoscopy demonstrated no injury to bowel, viscera, or mesentery. The liver surface was unremarkable for fatty liver disease. No injury had occurred to the small bowel or viscera. Along the hiatus no large hiatal hernia was found. A 8 mm port was placed along the right upper abdominal wall after exchanging the 5 mm port. A separate 8 mm port was placed along the left lateral abdominal wal l. Please note that the ports were placed at least 20 cm away from the target anatomy. Care was taken to check each robotic arms were safely away from collision with the bed or the patient. At the epigastrium, a medium sized Callie liver retractor was placed under direct visualization with the Iron Procurement Inspector placed under the right shoulder of the patient. Next, 12-mm robot stapler port was placed along the right upper quadrant. The camera 8-mm port was maintained along the epigastrium. The patient was repositioned in reverse Trendelenburg position at 21-degrees after lowering the bed. The robot was docked along the left side of the patient. Using a grasper for arm 4, a veseel sealer for arm 3, including grasper for arm 1, the robotic system was docked and primed as described. Instruments were interchanged by the seed laboratory assistant for stapler loads. The camera was placed at 30-degrees down. I had sat at the console. The pylorus was identified and 6 cm proximally along the greater curvature of the stomach, the short gastrics were mobilized upwards to the angle of His using a vessel sealer. Hemostasis was excellent during this portion of the procedure. Next, the upper pole of the stomach was adherent to the left shilpa, which was gently dissected free using atraumatic grasper. The nursing collar packer placed a 40-Saudi Arabian blunted tip bougie into the stomach. Robotic stapler green loads 60 mm x 3 and 60 mm x 4 blue loads were used to create the sleeve. Initial firing was across the antrum of the stomach towards the angle of His. The staple line was completely hemostatic and linear without corkscrewing. Hemostasis was excellent. The space from the angularis incisura of the sleeve was approximately 4 cm. I then went to the head of the bed to perform the intraoperative e sophagogastroduodenoscopy leak test. The upper pole of the stomach was bathed using normal saline solution. The scope was withdrawn with careful inspection along the staple line for which no leaks were found along the entire length. Additionally, the sleeve was completely hemostatic without any encroachment along the angularis incisura. Its topology was a soft "J". No stricture was encountered up on placement of the scope. The GI tract was desufflated. The patient tolerated this portion of the procedure well. The scope was completely withdrawn. The robot was undocked. I then rescrubbed into case, whereby the irrigation fluid was aspirated from the abdominal cavity. Tisseel fibrin sealant was placed along the staple length. Once dried the Callie liver retractor was removed. Attention was now brought to removal of the specimen. The distal end of the sleeve gastrectomy specimen was brought out through the 12 mm port at the left upper quadrant. The specimen was gently removed en total, corresponding to 26 cm x 4.5 cm sleeve gastrectomy specimen. No contamination had occurred during this process. All instruments and pneumoperitoneum including irrigation fluid was removed from the abdominal cavity. The 12 mm port site was irrigated with warm normal saline solution and diluted hydron peroxide. The 12-mm port site was reapproximated using 0 Vicryl and Marcelo-Ama of the left upper quadrant. The final incisions were closed using subcuticular interrupted suture of 4-0 Monocryl. Dermabond was applied to the skin once the skin had been cleansed. OptiFoam dressing was placed along the stomach extraction site. At the end of the procedure, needle, sponge, and instrument count was verified correct by the cardiovascular surgical tech. The patient was taken to the postanesthesia care unit in stable condition. He had tolerated the procedure well. Intraoperative films and findings were reviewed with the patient's family.
[2021-04-05] MEDS ORDERED: KETOROLAC 15 MG/ML 1 ML VIAL IVP ONE (16:50)
[2021-04-05] MEDS: DEXAMETHASONE SOD PHOSPHATE 4 MG/ML 1 ML VIAL IVP SCH (18:14)
[2021-04-05] MEDS: ONDANSETRON 4 MG/2 ML VIAL IVP SCH (18:14)
[2021-04-05] MEDS: KETOROLAC 30 MG/ML 1 ML VIAL IVP SCH (18:14)
[2021-04-05 18:16] VITALS: RESP 18
[2021-04-05] MEDS: ALBUTEROL NEBULIZED 2.5 MG/3 ML INHALATION SCH (19:15)
[2021-04-05] MEDS: 0.9% NACL WITH KCL 20 MEQ/L 1,000 ML IV SCH (20:00)
[2021-04-05] MEDS: ACETAMINOPHEN IV (For NPO) 1,000 MG in EMPTY BAG 1 BAG IVPB SCH (20:00)
[2021-04-06] MEDS: KETOROLAC 30 MG/ML 1 ML VIAL IVP SCH ×3 (00:14→13:50)
[2021-04-06] MEDS: ONDANSETRON 4 MG/2 ML VIAL IVP SCH ×3 (00:18→13:51)
[2021-04-06] MEDS: DEXAMETHASONE SOD PHOSPHATE 4 MG/ML 1 ML VIAL IVP SCH ×3 (00:21→13:50)
[2021-04-06] MEDS: ACETAMINOPHEN IV (For NPO) 1,000 MG in EMPTY BAG 1 BAG IVPB SCH ×3 (01:46→13:51)
[2021-04-06] MEDS: 0.9% NACL WITH KCL 20 MEQ/L 1,000 ML IV SCH ×2 (01:48→07:58)
[2021-04-06] MEDS: LACTATED RINGERS 1,000 ML IV SCH (08:00)
[2021-04-06] MEDS ORDERED: 0.9% NACL WITH KCL 20 MEQ/L 1,000 ML IV SCH (08:00)
[2021-04-06 08:29] VITALS: TEMP 98.4
[2021-04-06] MEDS ORDERED: FLUoxetine HCL 20 MG CAP PO SCH (09:00)
[2021-04-06] MEDS ORDERED: PANTOPRAZOLE 40 MG/10 ML VIAL IV SCH (09:00)
[2021-04-06] MEDS ORDERED: ENOXAPARIN 40 MG/0.4 ML SYRINGE SQ SCH (09:00)
[2021-04-06] MEDS: ALBUTEROL NEBULIZED 2.5 MG/3 ML INHALATION SCH ×2 (09:29→11:56)
[2021-04-06 09:37] LABS: Basophils # (A) 0 X 10*3/uL (0.00-0.10); Basophils % (A) 0 %; Eosinophils # (A) 0 X 10*3/uL (0.04-0.35); Eosinophils % (A) 0 %; HCT 39.9 % (37.2-46.3); HGB 12.3 g/dL (12.0-15.0); Lymphocytes # (A) 0.76 X 10*3/uL (0.90-5.00); Lymphocytes % (A) 8.2 %; MCH 28.1 pg (27.0-32.0); MCHC 30.8 g/dL (32.0-37.0); MCV 91.1 fL (80.0-97.0); Mean Platelet Volume 10.8 fL (9.5-12.2); Monocytes # (A) 0.17 X 10*3/uL (0.20-1.00); Monocytes % (A) 1.8 %; Neutrophils # (A) 8.31 X 10*3/uL (1.80-7.70); Neutrophils % (A) 89.6 %; Platelet Count 230 X 10*3/uL (140-440); RBC 4.38 X 10*6/uL (4.10-5.20); RDW 13.2 % (11.5-14.5); WBC 9.28 X 10*3/uL (4.50-10.00)
[2021-04-06 11:27] LABS: African American GFR (CKD) 146.2 (60.0-200.0); Anion Gap 15.2 mmol/L (10.00-18.00); Blood Urea Nitrogen 9.8 mg/dL (9.0-27.0); Calcium 8.8 mg/dL (8.7-10.3); Carbon Dioxide 15.9 mmol/L (20.0-27.5); Magnesium 2.1 mg/dL (1.5-2.4); Non-African American GFR(CKD) 126.2 (60.0-200.0); Phosphorus 3.4 mg/dL (2.4-5.1); Potassium 5.1 mmol/L (3.5-5.5)
[2021-04-06 11:59] VITALS: BMI 42.5
--- NOTE | 2021-04-06 14:01 | FL ---
SINGLE CONTRAST UPPER GI EXAMINATION: CLINICAL HISTORY: 30-year-old female postop bariatric surgery. TECHNIQUE: Single contrast exam performed with 50 ml Isovue-370 contrast. Total fluoroscopy time: 1 minute 8 seconds. Total images: 24. FINDINGS: The patient swallowed oral contrast without difficulty or delay. Esophageal peristalsis and motility are within normal limits. There is prompt passage of contrast from the esophagus into the stomach. There is postsurgical change of sleeve gastrectomy demonstrated. Satisfactory passage across the slee ve and into the duodenum. There is no evidence of contrast extravasation to suggest leak. No postsurg ical free air identified in the abdomen. IMPRESSION: No evidence for leak or obstruction status post sleeve gastrectomy.
--- NOTE | 2021-04-06 14:45 | P.DS ---
Providers Date of admission: 04/05/21 11:56 Expected date of discharge: 04/06/21 Attending physician: Angelique Will Primary care physician: Gilmer Pereira MD Hospital Course: Discharge diagnosis 1. Morbid obesity due to excess calories 2. Body mass index of 48.3, initial 3. Seizure disorder 4. Generalized anxiety disorder 5. Depressive disorder 6. Gastroesophageal reflux disease 7. Obstructive sleep apnea 8. Osteoarthritis of the bilateral knees 9. Left ankle osteoarthritis 10. Dietary surveillance and counseling 11. Tobacco abuse disorder Hospital course Marissa Ruiz is a 30-year-old female who comes with lifelong morbid obesity. As a result of her obesity, she had developed osteoarthritis of the knees, left ankle pain with osteoarthritis, and sleep apnea. Patient is status post Robotic assisted daVinci Xi laparoscopic sleeve gastrectomy. Patient tolerated surgery well. Upper GI completed showing no evidence of leak or obstruction. Patient is tolerating her bariatric clear liquid diet. She is having flatus. She has been up and ambulating. Her pain is controlled. She is afebrile. She is urinating without difficulty. Patient is still for discharge. Physician Cork Wirer note has been reviewed by physician. Signing provider agrees with the documented findings, assessment, and plan of care. Patient Condition at Discharge: Stable Plan - Discharge Summary Discharge Rx Participant: No New Discharge Prescriptions: New bisacodyL [Dulcolax] 5 mg PO DAILY PRN #10 tab PRN Reason: Constipation Simethicone 40 mg/0.6 ml Drops [Mylicon Drops] 40 mg PO PCHS PRN #30 ml PRN Reason: Gas Omeprazole [PriLOSEC] 40 mg PO DAILY #30 cap Acetaminophen Tab [Tylenol Tab] 1,000 mg PO Q6HR PRN #30 tablet PRN Reason: Pain Ondansetron Odt [Zofran Odt] 4 mg PO Q8HR PRN #9 tab PRN Reason: Nausea Continue FLUoxetine HCL [PROzac] 40 mg PO DAILY Discontinued Ibuprofen [Motrin] 800 mg PO TID PRN PRN Reason: Pain Discharge Medication List FLUoxetine HCL [PROzac] 40 mg PO DAILY 03/08/21 [History] Acetaminophen Tab [Tylenol Tab] 1,000 mg PO Q6HR PRN #30 tablet 04/05/21 [Rx] Omeprazole [PriLOSEC] 40 mg PO DAILY #30 cap 04/05/21 [Rx] Ondansetron Odt [Zofran Odt] 4 mg PO Q8HR PRN #9 tab 04/05/21 [Rx] Simethicone 40 mg/0.6 ml Drops [Mylicon Drops] 40 mg PO PCHS PRN #30 ml 04/05/21 [Rx] bisacodyL [Dulcolax] 5 mg PO DAILY PRN #10 tab 04/05/21 [Rx] [facility] up [facility]ment[facility] [facility] [place] [place] [facility] [place] 04/09/21 9:00 am Patient Instructions/Handouts: *[facility] - Managing Your Pain After Surgery Without Opioids, *[facility] - Scopalamine Patch Instructions, Nutrition after Bariatric Surgery (GEN), Laparoscopic Sleeve Gastrectomy (DC) Activity/Diet/Wound Care/Special Instructions: Liquid diet only for 2 weeks until April 19 May Shower. No soaking in bath tubs 2 weeks until April 19 Continue to use incentive spirometry to prevent pneumonias. Please continue to ambulate at home to prevent blood clots in legs. Please notify your surgeon if you develop nausea and vomiting including new onset of abdominal pain. No lifting over 4 pounds in 4 weeks, May 06 Drink 64 oz of fluid daily. Start protein shakes on . Notify bariatric center for temp over 101.0, increased pain, drainage from incisions. No straws or carbonated beverages. Liquid diet only. Sugar content should be less than 6 g to avoid dumping syndrome. Take MOM for constipation. CRUSH, OPEN, OR CUT TABLETS LARGER THAN A SIZE OF A TIC TAC Discharge Disposition: HOME SELF-CARE
[2021-04-06 14:55] VITALS: BP 102/67; PULSE 62
== END 2021-04-06 16:53 | disposition home or self-care (01) | DRG 621 ==
LOC: 2ORMAIN 11:56 → 4SSUR 17:05
PROVIDERS: ADMIT Surgery Plastic and Reconstructive Surgery; ATTEND Surgery Plastic and Reconstructive Surgery
PROC: 0DJ08ZZ Inspection of Upper Intestinal Tract, Via Natural or Artificial Opening Endoscopic (ICD-10-PCS; 2021-04-05)
PROC: 8E0W4CZ Robotic Assisted Procedure of Trunk Region, Percutaneous Endoscopic Approach (ICD-10-PCS; 2021-04-05)
PROC: 0DB64Z3 Excision of Stomach, Percutaneous Endoscopic Approach, Vertical (ICD-10-PCS; principal; 2021-04-05 13:25)
DX: E66.01 Morbid (severe) obesity due to excess calories (principal); F32.A Depression, unspecified; Z68.42 Body mass index [BMI] 45.0-49.9, adult; Z20.822 Contact with and (suspected) exposure to COVID-19; F41.1 Generalized anxiety disorder; G40.909 Epilepsy, unspecified, not intractable, without status epilepticus; G47.33 Obstructive sleep apnea (adult) (pediatric); K21.9 Gastro-esophageal reflux disease without esophagitis; M17.0 Bilateral primary osteoarthritis of knee; M19.072 Primary osteoarthritis, left ankle and foot; Z79.899 Other long term (current) drug therapy; Z71.3 Dietary counseling and surveillance; Z87.891 Personal history of nicotine dependence
CPT/HCPCS: 74240; 80051; 81025; 82310; 82565; 83735; 84100; 84520; 85025; 86850; 86900; 86901; 87635; 88307; 94640

== ENCOUNTER → 2021-04-09 | Outpatient (CLI) | payer BC ==
[2021-04-09 09:20] VITALS: BP 112/78; PULSE 76; TEMP 98.1; BMI 44.1
--- NOTE | 2021-04-09 10:02 | P.BASOAP ---
Subjective Progress Note Date: 04/09/21 Patient is doing extremely well. Urinating well. Tolerating fluids. White cell count normal for the first time. Follow-up in one week. Objective - Vital Signs Vital signs: Vital Signs Temp 98.1 F 04/09/21 09:18 Pulse 76 04/09/21 09:18 Resp BP 112/78 04/09/21 09:18 Pulse Ox Intake & Output 04/08/21 04/09/21 04/09/21 18:59 06:59 18:59 Weight 120.202 kg Assessment/Plan Plan: Date: 04/09/21 Initial Weight: 131.542 kg Initial BMI: 48.2 Current Weight: 120.202 kg Current BMI: 44.1 Type of Surgery: Total Volume in Band: Previous Volume: Volume Removed: Volume Added: Band Size:
== END | disposition home or self-care (01) ==
LOC: BARWHC3 08:47
PROVIDERS: ATTEND Surgery Plastic and Reconstructive Surgery
DX: E66.01 Morbid (severe) obesity due to excess calories (principal); Z68.41 Body mass index [BMI] 40.0-44.9, adult
CPT/HCPCS: 99211

== ENCOUNTER → 2021-04-14 | Outpatient (CLI) | payer BC ==
--- NOTE | 2021-04-14 15:59 | P.BASOAP ---
Subjective Progress Note Date: 04/14/21 [place] child. Doing awesome! She has lost 20 pounds in 2 weeks. Assessment/Plan Plan: Date: Initial Weight: 131.542 kg Initial BMI: Current Weight: Current BMI: Type of Surgery: Total Volume in Band: Previous Volume: Volume Removed: Volume Added: Band Size:
[2021-04-14 16:10] VITALS: BMI 41.4
[2021-04-14 17:03] VITALS: BP 122/77; PULSE 92; RESP 16; TEMP 98.6
== END ==
LOC: BARWHC3 14:25
PROVIDERS: ATTEND Surgery Plastic and Reconstructive Surgery
DX: E66.01 Morbid (severe) obesity due to excess calories (principal); Z71.3 Dietary counseling and surveillance; Z68.41 Body mass index [BMI] 40.0-44.9, adult
CPT/HCPCS: 97803; 99211

== ENCOUNTER → 2021-05-06 | Outpatient (CLI) | payer BC ==
[2021-05-06 15:58] LABS: Partial Thromboplastin Time 23.5 sec (22.0-30.0); Prothrombin Time 10.9 sec (9.0-12.0)
[2021-05-06 23:20] LABS: HCT 40.2 % (37.2-46.3); HGB 12.9 g/dL (12.0-15.0); MCH 28.4 pg (27.0-32.0); MCHC 32.1 g/dL (32.0-37.0); MCV 88.4 fL (80.0-97.0); Mean Platelet Volume 11.9 fL (9.5-12.2); Platelet Count 228 X 10*3/uL (140-440); RBC 4.55 X 10*6/uL (4.10-5.20); RDW 14.1 % (11.5-14.5); WBC 11.64 X 10*3/uL (4.50-10.00)
[2021-05-07 01:01] LABS: % Iron Saturation 11.88 (12.00-45.00); ALT 28 U/L (8-44); AST 19 U/L (13-35); African American GFR (CKD) 147.2 (60.0-200.0); Albumin 4.4 g/dL (3.8-4.9); Albumin/Globulin Ratio 2.22 (1.60-3.17); Alkaline Phosphatase 102 U/L (41-126); BUN/Creat Ratio 39.85 Ratio (12.00-20.00); Blood Urea Nitrogen 21.8 mg/dL (9.0-27.0); Calcium 9.7 mg/dL (8.7-10.3); Carbon Dioxide 22.3 mmol/L (20.0-27.5); Chloride 101 mmol/L (96-109); Glucose 87 mg/dL (70-110); Iron 33 ug/dL (50-170); LDL Cholesterol,Calculated 72.7 mg/dL (0.0-131.0); Potassium 3.6 mmol/L (3.5-5.5); Prealbumin 14.8 mg/dL (18.0-42.0); Sodium 140 mmol/L (135-145); Total Iron Binding Capacity 279 ug/dL (228-460); Total Protein 6.4 g/dL (6.2-8.2); VLDL Calculation 16.94 mg/dL (5.00-40.00)
[2021-05-07 02:11] LABS: Phosphorus 4.3 mg/dL (2.4-5.1)
[2021-05-07 14:55] LABS: Zinc, Serum 75 ug/dL (60-130)
== END | disposition home or self-care (01) ==
LOC: LABWHC1 14:59
PROVIDERS: ATTEND Surgery Plastic and Reconstructive Surgery
DX: E66.01 Morbid (severe) obesity due to excess calories (principal); E89.1 Postprocedural hypoinsulinemia; D50.8 Other iron deficiency anemias; E44.0 Moderate protein-calorie malnutrition; E55.9 Vitamin D deficiency, unspecified; K74.1 Hepatic sclerosis; N19 Unspecified kidney failure; K50.90 Crohn's disease, unspecified, without complications
CPT/HCPCS: 36415; 80053; 80061; 82306; 82525; 82607; 82728; 82746; 83036; 83540; 83550; 83735; 83970; 84100; 84134; 84255; 84425; 84443; 84590; 84630; 85027; 85610; 85730

== ENCOUNTER → 2021-07-07 | Outpatient (CLI) | payer BC ==
--- NOTE | 2021-07-07 15:11 | P.BASOAP ---
Subjective Progress Note Date: 07/07/21 Lost 50 pounds. She is doing well. No GERD. She is not keeping a sample. Bloodwork check. Recheck vitamin Food diary 3 month. Assessment/Plan Plan: Date: Initial Weight: 131.542 kg Initial BMI: Current Weight: Current BMI: Type of Surgery: Total Volume in Band: Previous Volume: Volume Removed: Volume Added: Band Size:
[2021-07-07 15:41] VITALS: BP 110/78; PULSE 76; TEMP 98; BMI 36.8
[2021-07-07 17:21] LABS: INR 0.9 (<1.2); Partial Thromboplastin Time 23.8 sec (22.0-30.0); Prothrombin Time 10.2 sec (9.0-12.0)
[2021-07-08 00:17] LABS: % Iron Saturation 10.66 (12.00-45.00); ALT 11 U/L (8-44); AST 15 U/L (13-35); Albumin 4.4 g/dL (3.8-4.9); Albumin/Globulin Ratio 2.31 (1.60-3.17); Alkaline Phosphatase 98 U/L (41-126); Blood Urea Nitrogen 13.9 mg/dL (9.0-27.0); Calcium 9.4 mg/dL (8.7-10.3); Carbon Dioxide 21.8 mmol/L (20.0-27.5); Chloride 101 mmol/L (96-109); Globulin 1.9 g/dL (1.6-3.3); Glucose 85 mg/dL (70-110); Iron 30 ug/dL (50-170); Non-African American GFR(CKD) 124.3 (60.0-200.0); Phosphorus 4.4 mg/dL (2.4-5.1); Potassium 3.9 mmol/L (3.5-5.5); Sodium 139 mmol/L (135-145); Total Iron Binding Capacity 281 ug/dL (228-460); Total Protein 6.3 g/dL (6.2-8.2)
[2021-07-08 00:56] LABS: HCT 41.6 % (37.2-46.3); HGB 13.2 g/dL (12.0-15.0); MCH 28.9 pg (27.0-32.0); MCHC 31.7 g/dL (32.0-37.0); Mean Platelet Volume 10.9 fL (9.5-12.2); NRBC Per 100 WBC 0 /100 WBCS (0.0-0.0); Platelet Count 205 X 10*3/uL (140-440); RBC 4.57 X 10*6/uL (4.10-5.20); RDW 14.1 % (11.5-14.5); WBC 6.76 X 10*3/uL (4.50-10.00)
[2021-07-08 04:43] LABS: Chol/HDL Ratio 3.48 Ratio; LDL Cholesterol,Calculated 74.4 mg/dL (0.0-131.0); Prealbumin 18.3 mg/dL (18.0-42.0)
[2021-07-08 12:58] LABS: Zinc, Serum 62 ug/dL (60-130)
[2021-07-09 08:32] LABS: Vitamin A 41 ug/dL (38-106)
== END | disposition home or self-care (01) ==
LOC: BARWHC3 14:55
PROVIDERS: ATTEND Surgery Plastic and Reconstructive Surgery
DX: E66.01 Morbid (severe) obesity due to excess calories (principal); D50.8 Other iron deficiency anemias; D50.9 Iron deficiency anemia, unspecified; K90.89 Other intestinal malabsorption; K90.9 Intestinal malabsorption, unspecified; E55.9 Vitamin D deficiency, unspecified; K74.1 Hepatic sclerosis; N19 Unspecified kidney failure; T56.894A Toxic effect of other metals, undetermined, initial encounter; K50.90 Crohn's disease, unspecified, without complications
CPT/HCPCS: 80053; 80061; 82306; 82525; 82607; 82728; 82746; 83036; 83540; 83550; 83735; 83970; 84100; 84134; 84255; 84425; 84443; 84590; 84630; 85027; 85610; 85730; 97803; 99211

== ENCOUNTER → 2021-10-06 | Outpatient (CLI) | payer BC ==
[2021-10-06 14:38] VITALS: BP 120/76; PULSE 79; TEMP 98.6; BMI 33.3
--- NOTE | 2021-10-06 14:49 | P.BASOAP ---
Subjective Progress Note Date: 10/06/21 Reviewed journal. Fluids adequate. Has weight loss. 6 months labs. Objective - Vital Signs Vital signs: Vital Signs Temp 98.6 F 10/06/21 14:34 Pulse 79 10/06/21 14:34 Resp BP 120/76 10/06/21 14:34 Pulse Ox FiO2 Intake & Output 10/05/21 10/06/21 10/06/21 18:59 06:59 18:59 Weight 90.718 kg Assessment/Plan Plan: Date: 10/06/21 Initial Weight: 131.542 kg Initial BMI: 48.2 Current Weight: 90.718 kg Current BMI: 33.3 Type of Surgery: Total Volume in Band: Previous Volume: Volume Removed: Volume Added: Band Size:
[2021-10-06 16:08] LABS: INR 0.9 (<1.2); Partial Thromboplastin Time 24.4 sec (22.0-30.0); Prothrombin Time 10.3 sec (9.0-12.0)
[2021-10-06 23:14] LABS: Chol/HDL Ratio 3.24 Ratio; LDL Cholesterol,Calculated 90.9 mg/dL (0.0-131.0); Prealbumin 17.6 mg/dL (18.0-42.0)
[2021-10-06 23:15] LABS: HGB 12.6 g/dL (12.0-15.0); MCH 28.8 pg (27.0-32.0); MCHC 31.5 g/dL (32.0-37.0); MCV 91.5 fL (80.0-97.0); Mean Platelet Volume 10.8 fL (9.5-12.2); NRBC Per 100 WBC 0 /100 WBCS (0.0-0.0); Platelet Count 236 X 10*3/uL (140-440); RBC 4.37 X 10*6/uL (4.10-5.20); RDW 13.2 % (11.5-14.5)
[2021-10-06 23:55] LABS: ALT 13 U/L (8-44); AST 15 U/L (13-35); African American GFR (CKD) 144.5 (60.0-200.0); Albumin 4.3 g/dL (3.8-4.9); Albumin/Globulin Ratio 2.21 (1.60-3.17); Alkaline Phosphatase 90 U/L (41-126); BUN/Creat Ratio 28.37 Ratio (12.00-20.00); Blood Urea Nitrogen 16.4 mg/dL (9.0-27.0); Calcium 9.3 mg/dL (8.7-10.3); Carbon Dioxide 24.8 mmol/L (20.0-27.5); Chloride 103 mmol/L (96-109); Glucose 93 mg/dL (70-110); Non-African American GFR(CKD) 124.7 (60.0-200.0); Sodium 140 mmol/L (135-145); Total Protein 6.3 g/dL (6.2-8.2)
[2021-10-06 23:56] LABS: % Iron Saturation 9.24 (12.00-45.00); Ferritin 69.5 ng/mL (10.0-291.0); Iron 28 ug/dL (50-170); Magnesium 2.2 mg/dL (1.5-2.4); Phosphorus 4.6 mg/dL (2.4-5.1); Total Iron Binding Capacity 305 ug/dL (228-460)
[2021-10-07 13:27] LABS: Zinc, Serum 56 ug/dL (60-130)
== END | disposition home or self-care (01) ==
LOC: BARWHC3 14:27
PROVIDERS: ATTEND Surgery Plastic and Reconstructive Surgery
DX: E66.01 Morbid (severe) obesity due to excess calories (principal); D50.8 Other iron deficiency anemias; D50.9 Iron deficiency anemia, unspecified; K91.2 Postsurgical malabsorption, not elsewhere classified; E44.0 Moderate protein-calorie malnutrition; E44.1 Mild protein-calorie malnutrition; E45 Retarded development following protein-calorie malnutrition; K74.1 Hepatic sclerosis; E55.9 Vitamin D deficiency, unspecified; N19 Unspecified kidney failure; T56.894A Toxic effect of other metals, undetermined, initial encounter; K50.90 Crohn's disease, unspecified, without complications
CPT/HCPCS: 80053; 80061; 82306; 82525; 82607; 82728; 82746; 83036; 83540; 83550; 83735; 83970; 84100; 84134; 84255; 84425; 84443; 84590; 84630; 85027; 85610; 85730; 97803; 99211

== ENCOUNTER → 2022-07-18 | Outpatient (CLI) | payer BC | END | disposition home or self-care (01) | LOC: LABWHC1 14:29 | PROVIDERS: ATTEND Physician Assistant | DX: L40.0 Psoriasis vulgaris (principal); Z79.899 Other long term (current) drug therapy | CPT/HCPCS: 36415; 86480 ==

== ENCOUNTER → 2022-11-07 | Outpatient (CLI) | payer BC ==
--- NOTE | 2022-11-07 14:30 | CA ---
Transthoracic Echo Report Name: Marissa Ruiz Age: 31 Gender: F : 1990 Exam Date: 11/07/2022 12:44 Exam Location: [place] Echo Ht (in): 66 Wt (lb): 210 Ordering Physician: Bentley Meneses DO Attending/Referring Phys: Structural Steel Equipment Erector Anisha Lisa [facility] Procedure CPT: Indications: R01.1 Murmur Cardiac Hx: Technical Quality: Fair Contrast 1: Total Dose (mL): Contrast 2: Total Dose (mL): MEASUREMENTS (Male / Female) Normal Values 2D ECHO LV Diastolic Diameter PLAX 4.8 cm 4.2 - 5.9 / 3.9 - 5.3 cm LV Systolic Diameter PLAX 3.3 cm IVS Diastolic Thickness 0.9 cm 0.6 - 1.0 / 0.6 - 0.9 cm LVPW Diastolic Thickness 0.8 cm 0.6 - 1.0 / 0.6 - 0.9 cm LV Relative Wall Thickness 0.3 LVOT Diameter 2.1 cm Ascending Aorta Diameter 2.6 cm M-MODE Aortic Root Diameter MM 2.7 cm LA Systolic Diameter MM 3.5 cm LA Ao Ratio MM 1.3 AV Cusp Separation MM 2.1 cm DOPPLER AV Peak Velocity 135.7 cm/s AV Peak Gradient 7.4 mmHg AV Mean Velocity 94.4 cm/s AV Mean Gradient 3.9 mmHg AV Velocity Time Integral 30.4 cm LVOT Peak Velocity 105.7 cm/s LVOT Peak Gradient 4.5 mmHg LVOT Velocity Time Integral 22.9 cm LVOT Stroke Volume 80.8 cm??? LVOT Stroke Volume Index 39.6 ml/m??? LVOT Cardiac Index 2528.0 cm???/min???m??? AV Area Cont Eq vti 2.7 cm??? AV Area Cont Eq pk 2.8 cm??? Mitral E Point Velocity 65.0 cm/s Mitral A Point Velocity 49.2 cm/s Mitral E to A Ratio 1.3 MV Deceleration Time 167.7 ms LV E' Lateral Velocity 17.5 cm/s Mitral E to LV E' Lateral Ratio 3.7 LV E' Septal Velocity 8.8 cm/s Mitral E to LV E' Septal Ratio 7.4 TR Peak Velocity 246.9 cm/s TR Peak Gradient 24.4 mmHg Right Atrial Pressure 3.0 mmHg Pulmonary Artery Systolic Pressu 27.4 mmHg Right Ventricular Systolic Press 27.4 mmHg FINDINGS Left Ventricle Normal wall thickness, systolic function with no obvious regional wall motion abnormalities. Left ventricular cavity size at the upper limits of normal. Normal left ventricular diastolic filling pattern for age. The ejection fraction is visually estimated at 55-60%. Right Ventricle Mild right ventricular dilatation. Right Atrium Mild right atrial dilatation. Left Atrium The left atrium is normal in size. Mitral Valve Structurally normal mitral valve without significant stenosis or prolapse. Trace mitral regurgitation. Aortic Valve Structurally normal tricuspid aortic valve without significant sclerosis or stenosis. There is no aortic regurgitation. Tricuspid Valve Structurally normal tricuspid valve without significant stenosis. Mild tricuspid regurgitation. RVSP is estimated at 30 mmHg Pulmonic Valve Structurally normal pulmonic valve without significant stenosis. There is no pulmonic regurgitation. Pericardium Normal pericardium without effusion. Aorta Normal aortic root dimension. CONCLUSIONS Normal LV size and systolic function. Normal LV wall thickness. Normal global LV systolic function. LVEF is estimated at 55-60% No regional wall motion abnormality. Normal diastolic filling pattern No obvious valvular abnormality. Normal chamber size No prior echo to compare with in [employer] database Previewed by: Dr Major Buck (Electronically Signed) Final Date: 07 November 2022 14:30
== END | disposition home or self-care (01) ==
LOC: RADECHMAIN 12:10
PROVIDERS: ATTEND Family Medicine
DX: R01.1 Cardiac murmur, unspecified (principal)
CPT/HCPCS: 93306

== ENCOUNTER → 2022-11-24 | Outpatient (CLI) | payer BC ==
[2022-11-24 12:11] LABS: HCT 39.6 % (37.2-46.3); HGB 12.9 d/dL (12.0-15.0); MCH 29.2 pg (27.0-32.0); MCHC 32.6 d/dL (32.0-37.0); MCV 89.6 FL (80.0-97.0); Mean Platelet Volume 10.3 FL (9.5-12.2); NRBC Per 100 WBC 0 X 10*3/uL (0.00-0.01); Platelet Count 218 X 10*3/uL (140-440); RBC 4.42 X 10*6/uL (4.10-5.20); RDW 12.4 % (11.5-14.5)
[2022-11-24 14:43] LABS: Prealbumin 24.5 mg/dL (18.0-42.0)
[2022-11-24 15:04] LABS: % Iron Saturation 12.28 (12.00-45.00); ALT 16 U/L (8-44); AST 17 U/L (13-35); Albumin 4.6 d/dL (3.8-4.9); Albumin/Globulin Ratio 2.42 Ratio (1.60-3.17); Alkaline Phosphatase 72 U/L (41-126); BUN/Creat Ratio 23.44 Ratio (12.00-20.00); Blood Urea Nitrogen 21.1 mg/dL (9.0-27.0); Calcium 9.3 mg/dL (8.7-10.3); Carbon Dioxide 23.6 mmol/L (21.6-31.8); Chloride 104 mmol/L (96-109); Chol/HDL Ratio 2.95 Ratio; Ferritin 62.4 ng/mL (10.0-291.0); Globulin 1.9 d/dL (1.6-3.3); Glucose 88 mg/dL (70-110); Iron 42 UG/DL (50-170); LDL Cholesterol,Calculated 91.9 mg/dL (0.0-131.0); Magnesium 2.2 mg/dL (1.5-2.4); Phosphorus 4.4 mg/dL (2.4-5.1); Potassium 4.3 mmol/L (3.5-5.5); Sodium 140 mmol/L (135-145); Total Bilirubin 0.2 mg/dL (0.3-1.2); Total Iron Binding Capacity 342 UG/DL (228-460); Total Protein 6.5 d/dL (6.2-8.2); VLDL Calculation 18.54 mg/dL (5.00-40.00)
[2022-11-25 11:36] LABS: Zinc, Serum 77 ug/dL (60-130)
== END | disposition home or self-care (01) ==
LOC: LABWHC1 06:48
PROVIDERS: ATTEND Surgery Plastic and Reconstructive Surgery
DX: E66.01 Morbid (severe) obesity due to excess calories (principal); E89.1 Postprocedural hypoinsulinemia; D50.8 Other iron deficiency anemias; K91.2 Postsurgical malabsorption, not elsewhere classified; E44.1 Mild protein-calorie malnutrition; E44.0 Moderate protein-calorie malnutrition; E55.9 Vitamin D deficiency, unspecified; K74.1 Hepatic sclerosis; N19 Unspecified kidney failure; T56.894A Toxic effect of other metals, undetermined, initial encounter; K50.90 Crohn's disease, unspecified, without complications
CPT/HCPCS: 36415; 80053; 80061; 82306; 82525; 82607; 82728; 82746; 83036; 83540; 83550; 83735; 83970; 84100; 84134; 84255; 84425; 84443; 84590; 84630; 85027

== ENCOUNTER → 2022-11-29 | Outpatient (CLI) | payer BC ==
[2022-11-29 08:06] LABS: INR 0.9 (<1.2); Partial Thromboplastin Time 22.8 sec (22.0-30.0); Prothrombin Time 9.5 sec (9.0-12.0)
== END | disposition home or self-care (01) ==
LOC: LABWHC1 06:52
PROVIDERS: ATTEND Surgery Plastic and Reconstructive Surgery
DX: E66.01 Morbid (severe) obesity due to excess calories (principal); E89.1 Postprocedural hypoinsulinemia; D50.8 Other iron deficiency anemias; K91.2 Postsurgical malabsorption, not elsewhere classified; E45 Retarded development following protein-calorie malnutrition; E44.1 Mild protein-calorie malnutrition; E46 Unspecified protein-calorie malnutrition; E44.0 Moderate protein-calorie malnutrition; E55.9 Vitamin D deficiency, unspecified; K74.1 Hepatic sclerosis; T56.894A Toxic effect of other metals, undetermined, initial encounter; K50.90 Crohn's disease, unspecified, without complications
CPT/HCPCS: 36415; 85610; 85730

== ENCOUNTER → 2023-04-26 | Outpatient (CLI) | payer BC ==
--- NOTE | 2023-04-26 09:44 | CT ---
EXAMINATION TYPE: CT angio head neck DATE OF EXAM: 04/26/2023 HISTORY: Headache and hears a whooshing sound on LT side that dissipates when she presses on her neck . COMPARISON: None CT DLP: 1501.30 mGycm. Automated Exposure Control for Dose Reduction was Utilized. TECHNIQUE: CTA scan of the head and neck is performed without and with IV Contrast, patient injected with 65 mL of Isovue 300, axial images are obtained, coronal and sagittal reformatted images are rev iewed. 3D reconstructed images are created on an independent workstation and reviewed. FINDINGS: Carotid/Vascular Structures: Normal three-vessel origin from the aortic arch . No significant plaque or stenosis. No significant plaque or stenosis along the common or internal carotid arteries bilatera lly including a level of the carotid bulbs. Vertebral arteries are codominant and patent to the basil ar junction. There is no large vessel occlusion or aneurysm in the region of the [place]. Pa tent anterior communicating artery is identified. Other: Noncontrast brain CT shows low-lying cerebellar tonsils to the level of foramen magnum without greater than 5 mm inferior extension. There is peripheral 9 mm calcification or ossification suspici ous for tiny meningioma high left parietal occipital region axial image 49 series 3. Nasal septum is deviated to right of midline. IMPRESSION: No significant vascular abnormality is seen. NASCET criteria was used in interpretation of this exam?
[2023-04-26 11:10] LABS: Basophils # (A) 0.03 X 10*3/uL (0.00-0.10); Basophils % (A) 0.3 %; Eosinophils % (A) 1.2 %; HCT 38.5 % (37.2-46.3); HGB 12.8 g/dL (12.0-15.0); Lymphocytes # (A) 1.86 X 10*3/uL (0.90-5.00); Lymphocytes % (A) 21.4 %; MCH 29.7 pg (27.0-32.0); MCHC 33.2 g/dL (32.0-37.0); MCV 89.3 FL (80.0-97.0); Mean Platelet Volume 10.1 FL (9.5-12.2); Monocytes # (A) 0.58 X 10*3/uL (0.20-1.00); Monocytes % (A) 6.7 %; NRBC Per 100 WBC 0 X 10*3/uL (0.00-0.01); Neutrophils # (A) 6.06 X 10*3/uL (1.80-7.70); Neutrophils % (A) 69.8 %; Platelet Count 241 X 10*3/uL (140-440); RBC 4.31 X 10*6/uL (4.10-5.20); WBC 8.68 X 10*3/uL (4.50-10.00)
[2023-04-26 11:42] LABS: % Iron Saturation 21.37 (12.00-45.00); ALT 19 U/L (8-44); AST 19 U/L (13-35); Albumin 4.3 g/dL (3.8-4.9); Albumin/Globulin Ratio 1.95 Ratio (1.60-3.17); Alkaline Phosphatase 81 U/L (41-126); Blood Urea Nitrogen 15.9 mg/dL (9.0-27.0); Calcium 9.2 mg/dL (8.7-10.3); Carbon Dioxide 23.8 mmol/L (21.6-31.8); Chloride 100 mmol/L (96-109); Chol/HDL Ratio 3.05 Ratio; Ferritin 36.6 ng/mL (10.0-291.0); Globulin 2.2 g/dL (1.6-3.3); Glucose 82 mg/dL (70-110); Iron 81 UG/DL (50-170); LDL Cholesterol,Calculated 120.4 mg/dL (0.0-131.0); Magnesium 1.9 mg/dL (1.5-2.4); Potassium 3.9 mmol/L (3.5-5.5); Sodium 136 mmol/L (135-145); Total Bilirubin 0.3 mg/dL (0.3-1.2); Total Iron Binding Capacity 379 UG/DL (228-460); Total Protein 6.5 g/dL (6.2-8.2); VLDL Calculation 9.44 mg/dL (5.00-40.00)
[2023-04-26 11:43] LABS: T4, Free (Free Thyroxine) 1.14 ng/dL (0.80-1.80)
== END | disposition home or self-care (01) ==
LOC: RADCTMAIN 06:48
PROVIDERS: ATTEND Family Medicine
DX: R51.9 Headache, unspecified (principal); E55.9 Vitamin D deficiency, unspecified; E03.9 Hypothyroidism, unspecified; Z13.1 Encounter for screening for diabetes mellitus; Z98.84 Bariatric surgery status; Z13.220 Encounter for screening for lipoid disorders
CPT/HCPCS: 84439; 84481; 80061; 80053; 82607; 82728; 82746; 83540; 83550; 83735; 84443; 85025; 82306; 83036; 70496; 70498; Q9967

== ENCOUNTER → 2023-06-19 | Outpatient (CLI) | payer BC ==
--- NOTE | 2023-06-19 08:24 | CT ---
EXAMINATION TYPE: CT iac w con DATE OF EXAM: 06/19/2023 COMPARISON: None HISTORY: 32 year-old female H93.12, left ear tinnitus CT DLP: 150 mGycm Automated exposure control for dose reduction was used. TECHNIQUE: Contiguous high-resolution axial scanning of the temporal bones with IV Contrast, patient injected with 100 mL of Isovue 300. Coronal reformatted images obtained. FINDINGS: There is no abnormality of visualized intracranial structures. The skull base appears normal. The external auditory canals appear patent. The middle ear cavities and mastoid air cells are well pneumatized. The adjacent dural venous sinus remains well opacified. There is no abnormality of middle ear ossicles. The round and oval windows are normal. High riding left jugular bulb without any dehiscence. Otherwise, there no abnormality of bony labyrin ths. The vestibular and cochlear aqueducts are well visualized. The facial nerve canal is normal bilaterally. The internal auditory canal and meati are symmetrical bilaterally. There is no evidence of fractures. Rightward nasal septal deviation. Paranasal sinuses appear clear. Piercing at the left eyebrow. Reformatted images confirm above findings. IMPRESSION: 1. High riding left jugular bulb but without dehiscence. Otherwise, no specific abnormality on tempor al bone CT. 2. Rightward nasal septal deviation incidentally seen.
[2023-06-19 15:52] LABS: Basophils # (A) 0.03 X 10*3/uL (0.00-0.10); Basophils % (A) 0.3 %; Eosinophils # (A) 0.06 X 10*3/uL (0.04-0.35); Eosinophils % (A) 0.6 %; HCT 38.6 % (37.2-46.3); HGB 12.6 g/dL (12.0-15.0); Lymphocytes # (A) 1.93 X 10*3/uL (0.90-5.00); Lymphocytes % (A) 19.5 %; MCH 29.6 pg (27.0-32.0); MCHC 32.6 g/dL (32.0-37.0); MCV 90.6 FL (80.0-97.0); Mean Platelet Volume 10.6 FL (9.5-12.2); Monocytes # (A) 0.65 X 10*3/uL (0.20-1.00); Monocytes % (A) 6.6 %; NRBC Per 100 WBC 0 X 10*3/uL (0.00-0.01); Neutrophils # (A) 7.22 X 10*3/uL (1.80-7.70); Neutrophils % (A) 72.8 %; Platelet Count 236 X 10*3/uL (140-440); RBC 4.26 X 10*6/uL (4.10-5.20); WBC 9.91 X 10*3/uL (4.50-10.00)
[2023-06-19 16:03] LABS: Hepatitis B Surface AB- Quant 19.1 mIU/mL
[2023-06-19 16:10] LABS: ALT 16 U/L (8-44); AST 14 U/L (13-35); Albumin 4.5 g/dL (3.8-4.9); Albumin/Globulin Ratio 1.96 Ratio (1.60-3.17); Alkaline Phosphatase 92 U/L (41-126); BUN/Creat Ratio 25.67 Ratio (12.00-20.00); Bilirubin, Conjugated <0.20 mg/dL (0.20-0.40); Bilirubin,Unconjugated >0 mg/dL (0.20-1.00); Blood Urea Nitrogen 15.4 mg/dL (9.0-27.0); Calcium 9.2 mg/dL (8.7-10.3); Carbon Dioxide 24.5 mmol/L (21.6-31.8); Chloride 104 mmol/L (96-109); Chol/HDL Ratio 2.92 Ratio; Globulin 2.3 g/dL (1.6-3.3); Glucose 80 mg/dL (70-110); LDL Cholesterol,Calculated 95.7 mg/dL (0.0-131.0); Potassium 3.7 mmol/L (3.5-5.5); Sodium 141 mmol/L (135-145); Total Bilirubin 0.2 mg/dL (0.3-1.2); Total Protein 6.8 g/dL (6.2-8.2); VLDL Calculation 8.94 mg/dL (5.00-40.00)
[2023-06-19 16:24] LABS: Hepatitis B Surface Antigen Nonreactive; Hepatitis C IgG Antibody Nonreactive
== END | disposition home or self-care (01) ==
LOC: RADCTMAIN 07:15
PROVIDERS: ATTEND Otolaryngology
DX: H93.12 Tinnitus, left ear (principal); J34.2 Deviated nasal septum
CPT/HCPCS: 86803; 80048; 80076; 80061; 85025; 86706; 87340; 86704; 86480; 70481; 36415; Q9967

== ENCOUNTER → 2024-05-13 | Outpatient (CLI) | payer OTHER | END | disposition home or self-care (01) | LOC: LABWHC1 12:25 | DX: L40.0 Psoriasis vulgaris (principal); Z79.899 Other long term (current) drug therapy | CPT/HCPCS: 36415; 86480 ==